=== PATIENT | male | born 1940 | race Caucasian/White ===

== ENCOUNTER 2019-10-16 07:23 | Outpatient (CLI) | payer OTHER ==
[~2019-10-16 07:23] MED LIST: ACUPRIL; ANTIVERT25 M1 PO; ASPIR-LOW81 MG; IBUPROFEN800 MG PO; NORTUSS-EX LIQ118 ML PO
== END 2019-10-16 07:30 | disposition home or self-care (01) ==
LOC: SONOGRAMA 07:23
DX: R10.13 Epigastric pain (principal); K86.89 Other specified diseases of pancreas; N18.3 Chronic kidney disease, stage 3 (moderate)

== ENCOUNTER → 2020-02-28 | Outpatient (CLI) | payer OTHER | END | disposition home or self-care (01) | LOC: RX STUDY 07:17 | PROVIDERS: ATTEND Internal Medicine Gastroenterology | DX: K57.90 Diverticulosis of intestine, part unspecified, without perforation or abscess without bleeding (principal); K57.92 Diverticulitis of intestine, part unspecified, without perforation or abscess without bleeding ==

== ENCOUNTER 2021-08-28 07:15 | Outpatient (CLI) | payer OTHER | END 2021-08-28 07:17 | disposition home or self-care (01) | LOC: SONOGRAMA 07:15 | PROVIDERS: ATTEND Internal Medicine | DX: R10.84 Generalized abdominal pain (principal) ==

== ENCOUNTER 2022-12-10 07:14 | Outpatient (CLI) | payer OTHER | END 2022-12-10 07:20 | disposition home or self-care (01) | LOC: SONOGRAMA 07:14 | PROVIDERS: ATTEND Internal Medicine | DX: N18.9 Chronic kidney disease, unspecified (principal); R10.84 Generalized abdominal pain ==

== ENCOUNTER 2022-12-14 13:40 | Outpatient (CLI) | payer OTHER | END 2022-12-14 13:42 | disposition home or self-care (01) | LOC: LAB 13:40 | PROVIDERS: ATTEND Internal Medicine | DX: N18.9 Chronic kidney disease, unspecified (principal) ==

== ENCOUNTER 2023-07-05 07:30 | Outpatient (CLI) | payer OTHER | END 2023-07-05 07:36 | disposition home or self-care (01) | LOC: SONOGRAMA 07:30 | PROVIDERS: ATTEND Internal Medicine Nephrology | DX: E11.22 Type 2 diabetes mellitus with diabetic chronic kidney disease (principal); N18.31 Chronic kidney disease, stage 3a; R20.9 Unspecified disturbances of skin sensation; Z88.5 Allergy status to narcotic agent ==

== ENCOUNTER → 2023-07-06 07:21 | Outpatient (CLI) | payer OTHER ==
[2023-07-06 07:55] LABS: HEMATOCRIT 37.2 % (39.0-48.0); HEMOGLOBIN 12.3 g/dL (13-16.00); MEAN CELL VOLUME 88.1 fL (80.0-100.00); MEAN CORPUSCULAR HGB CONC 32.9 g/dl (32.0-36.0); PLATELET COUNT 192 K/uL (150-450); RED BLOOD COUNT 4.22 M/uL (4.00-6.00); RED CELL DISTRIBUTION WIDTH 15.1 % (11.5-14.5)
[2023-07-06 08:00] LABS: PH,URINE 6.5 (5.0-8.0); URINE APPEARANCE Clear; URINE BILIRRUBIN Negative (NEGATIVE); URINE BLOOD Negative; URINE COLOR Yellow; URINE GLUCOSE Negative (NEGATIVE); URINE LEUKOCYTE Negative; URINE NITRATE Negative; URINE PROTEIN Negative (NEGATIVE); URINE UROBILINOGEN 0.2 E.U./dl
[2023-07-06 08:11] LABS: CREATININE URINE 65.8 MG/DL; URINE PROT QUANT 24HR 9.3 MG/DL
[2023-07-06 08:22] LABS: URINE PROT QUANT 24 HR 260.4 MG/24HR (42-225)
[2023-07-06 08:40] LABS: CALCIUM 8.9 mg/dL (8.5-10.1); CREATININE SERUM 1.75 mg/dL (0.70-1.30); GFR 37.6; PHOSPHOROUS 3.1 mg/dL (2.5-4.9); POTASSIUM 4.52 mEq/L (3.5-5.1); URIC ACID 5.4 mg/dL (3.5-8.5)
[2023-07-06 08:42] LABS: CREATINE CLEARANCE 73.3 ML/MIN (97-137); CREATININE SERUM 1.75 mg/dL (0.8-1.3)
[2023-07-06 09:02] LABS: URINE BACTERIA 1.2 uL (0.0-1933); URINE EPITHELIAL CELLS 0.1 uL (0.0-38.8); URINE RBC 0.1 uL (0.0-20.8); URINE WBC 1.2 uL (0.0-23.2)
== END | disposition home or self-care (01) ==
LOC: LAB 07:21
PROVIDERS: ATTEND Internal Medicine Nephrology
DX: N18.31 Chronic kidney disease, stage 3a (principal); I10 Essential (primary) hypertension; E11.29 Type 2 diabetes mellitus with other diabetic kidney complication; E78.9 Disorder of lipoprotein metabolism, unspecified; R80.9 Proteinuria, unspecified

== ENCOUNTER 2024-01-24 07:54 | Outpatient (CLI) | payer OTHER | END 2024-01-24 07:55 | disposition home or self-care (01) | LOC: NUCLEAR 07:54 | PROVIDERS: ATTEND Internal Medicine | DX: I73.9 Peripheral vascular disease, unspecified (principal); I70.92 Chronic total occlusion of artery of the extremities ==

== ENCOUNTER → 2024-01-25 07:46 | Outpatient (CLI) | payer OTHER | END | disposition home or self-care (01) | LOC: NUCLEAR 07:46 | PROVIDERS: ATTEND Internal Medicine | DX: I65.23 Occlusion and stenosis of bilateral carotid arteries (principal) ==